=== PATIENT | male | born 1995 | race Caucasian/White ===

== ENCOUNTER 2020-03-06 09:09 | Emergency (ER) | payer OTHER ==
[2020-03-06] MEDS ORDERED: IPRATROPIUM-ALBUTEROL 3 ML NEB INHALATION STA (09:15)
[2020-03-06 09:25] VITALS: RESP 18; TEMP 98.5
--- NOTE | 2020-03-06 09:33 | ED ---
General Adult HPI - General Chief complaint: Shortness of Breath Stated complaint: ALEXEY Time Seen by Provider: 03/06/20 09:10 Source: patient, RN notes reviewed Mode of arrival: EMS Limitations: no limitations - History of Present Illness Initial comments: Patient is a pleasant 24-year-old male presenting to the emergency department with difficulty breathing. Patient has history of asthma with similar symptoms previously. Symptoms have been present for the past few days. Patient does not have an inhaler at home. Symptoms were worse this morning. Patient does have occasional dry cough. No fevers. No leg pain or leg swelling. - Related Data Home Medications Medication Instructions Recorded Confirmed Escitalopram [Lexapro] 5 mg PO DAILY 03/06/20 03/06/20 Rexulti Unknown Dose 1 tab PO DAILY 03/06/20 03/06/20 Previous Rx's Medication Instructions Recorded Albuterol Sulfate [Albuterol 2 puff INHALATION Q6H PRN #1 03/06/20 Sulfate Hfa] inhaler predniSONE [Deltasone] 20 mg PO BID #8 tab 03/06/20 Allergies Allergy/AdvReac Type Severity Reaction Status Date / Time methylphenidate Allergy Unknown Verified 03/06/20 10:35 [From Ritalin] Review of Systems ROS Statement: Those systems with pertinent positive or pertinent negative responses have been documented in the HPI. ROS Other: All systems not noted in ROS Statement are negative. Constitutional: Denies: fever Eyes: Denies: eye pain ENT: Denies: ear pain Respiratory: Reports: as per HPI, cough, dyspnea Cardiovascular: Denies: chest pain Endocrine: Denies: fatigue Gastrointestinal: Denies: abdominal pain Genitourinary: Denies: dysuria Musculoskeletal: Denies: back pain Skin: Denies: rash Neurological: Denies: weakness Past Medical History Past Medical History: Asthma History of Any Multi-Drug Resistant Organisms: None Reported Past Surgical History: No Surgical Hx Reported Past Psychological History: Anxiety, Bipolar, Depression, Schizophrenia Smoking Status: Current every day smoker Past Alcohol Use History: Occasional Past Drug Use History: None Reported General Exam Limitations: no limitations General appearance: alert, in no apparent distress Head exam: Present: normocephalic Eye exam: Present: normal appearance ENT exam: Present: normal oropharynx Neck exam: Present: normal inspection Respiratory exam: Present: wheezes (Mild) Cardiovascular Exam: Present: regular rate, normal rhythm GI/Abdominal exam: Present: soft. Absent: tenderness Extremities exam: Present: normal inspection. Absent: calf tenderness Neurological exam: Present: alert Psychiatric exam: Present: normal affect, normal mood Skin exam: Present: normal color Course Vital Signs 03/06/20 03/06/20 03/06/20 09:22 09:28 09:38 Temperature 98.5 F Pulse Rate 67 66 66 Respiratory 18 Rate Blood Pressure 121/63 O2 Sat by Pulse 94 L Oximetry Medical Decision Making - Medical Decision Making Patient reevaluated and resting comfortably in bed. Lungs are clear. Patient states he feels better and is comfortable with discharge. He should and is receptive to prescription for inhaler as well as steroids. - Radiology Data Radiology results: image reviewed (Chest x-ray shows no acute process) Disposition Clinical Impression: Asthma with acute exacerbation Disposition: HOME SELF-CARE Condition: Stable Instructions (If sedation given, give patient instructions): Asthma (ED) Additional Instructions: Please follow-up with primary care physician in the next day or 2 for recheck. Return for difficulty breathing, fevers, worsening symptoms or any other concerns. Prescription sent to pharmacy. Prescriptions: Albuterol Sulfate [Albuterol Sulfate Hfa] 2 puff INHALATION Q6H PRN #1 inhaler PRN Reason: Shortness Of Breath predniSONE [Deltasone] 20 mg PO BID #8 tab Is patient prescribed a controlled substance at d/c from ED?: No Referrals: Jalen Fitch MD [STAFF PHYSICIAN] - 1-2 days Time of Disposition: 10:37
--- NOTE | 2020-03-06 10:27 | XR ---
EXAMINATION TYPE: XR chest 2V DATE OF EXAM: 03/06/2020 CLINICAL HISTORY: Cough, asthma. TECHNIQUE: Frontal and lateral views of the chest are obtained. COMPARISON: None FINDINGS: The cardiomediastinal silhouette is within normal limits for size. Pulmonary vasculature i s normal. There is no focal air space opacity, pleural effusion, or pneumothorax seen. The osseous st ructures are intact. IMPRESSION: No acute cardiopulmonary process.
[2020-03-06] MEDS ORDERED: DEXAMETHASONE SOD PHOSPHATE 10 MG/ML 1 ML VIAL IM STA (10:37)
[2020-03-06 11:03] VITALS: BP 119/72; PULSE 68
== END 2020-03-06 11:03 | disposition home or self-care (01) ==
LOC: EC 09:09
DX: J45.901 Unspecified asthma with (acute) exacerbation (principal); F41.9 Anxiety disorder, unspecified; F31.9 Bipolar disorder, unspecified; F20.9 Schizophrenia, unspecified; F17.200 Nicotine dependence, unspecified, uncomplicated; Z79.899 Other long term (current) drug therapy; Z88.8 Allergy status to other drugs, medicaments and biological substances
CPT/HCPCS: 71046; 99285; 96372; J1100

== ENCOUNTER 2020-06-27 11:55 | Emergency (ER) | payer OTHER ==
[2020-06-27 12:11] VITALS: BP 105/67; PULSE 66; RESP 18; TEMP 98
[2020-06-27] MEDS ORDERED: KETOROLAC 15 MG/ML 1 ML VIAL IM STA (12:38)
--- NOTE | 2020-06-27 12:41 | ED ---
General Adult HPI - General Chief complaint: Back Pain/Injury Stated complaint: back pain Time Seen by Provider: 06/27/20 12:00 Source: patient, RN notes reviewed, old records reviewed Mode of arrival: ambulatory Limitations: no limitations - History of Present Illness Initial comments: This is a 24-year-old male who presents emergency Department complaining of right sided lateral rib pain. Patient states started occurring when he was working at [employer]. Patient states moving or standing for long period time or coughing increases the pain. Patient states she is not coughing anymore than normal. Patient denies any fever chills per patient denies any anterior chest pain. Patient denies any shortness of breath or difficulty breathing. Patient states she just started working at [employer] one week ago and he worked 4 days straight now his right side of his ribs are tender. Patient denies any direct injury but he states that he stands for any length of time he starts to ache any just needs some medication to take the edge off. Patient does not want any narcotics. - Related Data Home Medications Medication Instructions Recorded Confirmed Escitalopram [Lexapro] 5 mg PO DAILY 03/06/20 03/06/20 Rexulti Unknown Dose 1 tab PO DAILY 03/06/20 03/06/20 Previous Rx's Medication Instructions Recorded Albuterol Sulfate [Albuterol 2 puff INHALATION Q6H PRN #1 03/06/20 Sulfate Hfa] inhaler predniSONE [Deltasone] 20 mg PO BID #8 tab 03/06/20 Ketorolac [Toradol] 10 mg PO Q6HR #15 tab 06/27/20 Allergies Allergy/AdvReac Type Severity Reaction Status Date / Time methylphenidate Allergy Unknown Verified 06/27/20 12:10 [From Ritalin] Review of Systems ROS Statement: Those systems with pertinent positive or pertinent negative responses have been documented in the HPI. ROS Other: All systems not noted in ROS Statement are negative. Past Medical History Past Medical History: Asthma History of Any Multi-Drug Resistant Organisms: None Reported Past Surgical History: No Surgical Hx Reported Past Psychological History: Anxiety, Bipolar, Depression, Schizophrenia Smoking Status: Current every day smoker Past Alcohol Use History: Occasional Past Drug Use History: None Reported General Exam - General Exam Comments Initial Comments: GENERAL: Patient is well-developed and well-nourished. Patient is nontoxic and well- hydrated and is in mild distress. ENT: Neck is soft and supple. No significant lymphadenopathy is noted. Oropharynx is clear. Moist mucous membranes. Neck has full range of motion without eliciting any pain. EYES: The sclera were anicteric and conjunctiva were pink and moist. Extraocular movements were intact and pupils were equal round and reactive to light. Eyeli ds were unremarkable. PULMONARY: Unlabored respirations. Good breath sounds bilaterally. No audible rales rhonchi or wheezing was noted. CARDIOVASCULAR: There is a regular rate and rhythm without any murmurs gallops or rubs. Ribs are slightly tender to touch. ABDOMEN: Soft and nontender with normal bowel sounds. SKIN: Skin is clear with no lesions or rashes and otherwise unremarkable. NEUROLOGIC: Patient is alert and oriented x3. Cranial nerves II through XII are grossly intact. Motor and sensory are also intact. Normal speech, volume and content. Symmetrical smile. Cerebellar exam grossly intact. MUSCULOSKELETAL: Normal extremities with adequate strength and full range of motion. LYMPHATICS: No significant lymphadenopathy is noted PSYCHIATRIC: Normal psychiatric evaluation. Limitations: no limitations Course Vital Signs 06/27/20 12:04 Temperature 98.0 F Pulse Rate 66 Respiratory 18 Rate Blood Pressure 105/67 O2 Sat by Pulse 99 Oximetry Disposition Clinical Impression: Thoracic myofascial strain Disposition: HOME SELF-CARE Condition: Good Instructions (If sedation given, give patient instructions): Thoracic Pain (ED) Prescriptions: Ketorolac [Toradol] 10 mg PO Q6HR #15 tab Is patient prescribed a controlled substance at d/c from ED?: No Referrals: None,Stated [Primary Care Provider] - 1-2 days Time of Disposition: 12:41
== END 2020-06-27 13:00 | disposition home or self-care (01) ==
LOC: EC 11:55
DX: S29.012A Strain of muscle and tendon of back wall of thorax, initial encounter (principal); F41.9 Anxiety disorder, unspecified; F32.9 Major depressive disorder, single episode, unspecified; F20.9 Schizophrenia, unspecified; F17.200 Nicotine dependence, unspecified, uncomplicated; Z79.899 Other long term (current) drug therapy; Z88.8 Allergy status to other drugs, medicaments and biological substances; X58.XXXA Exposure to other specified factors, initial encounter
CPT/HCPCS: 99283; 96372; J1885